=== PATIENT | male | born 1970 | race Caucasian/White ===

== ENCOUNTER 2016-12-31 03:04 | Emergency (ER) | payer OTHER ==
[~2016-12-31] VITALS: Ht 182.9 cm; Wt 72.6 kg
[~2016-12-31 03:04] MED LIST: MOTRIN 800MG T800 MG PO; PERCOCET 5-3251 EACH PO; TYLENOL500 MG PO
--- NOTE | 2016-12-31 03:10 | ED UPPER/LOWER EXTREMITY COMPL ---
History of Present Illness General Chief Complaint: General Adult Stated Complaint: HIVES ON LEFT HAND/MED REFILL Source: patient Exam Limitations: no limitations Vital Signs & Intake/Output Vital Signs & Intake/Output Vital Signs Date Time Temp Pulse Resp B/P Pulse O2 O2 Flow FiO2 Ox Delivery Rate 12/31 0311 97.3 78 18 110/68 96 Room Air Allergies Coded Allergies: NO KNOWN ALLERGIES (04/28/15) Reconcile Medications Oxycodone HCl/Acetaminophen (Percocet 5-325 MG Tablet) 1 EACH TABLET 1 TAB PO Q8 PRN pain Prednisone 10 MG TABLET 5 TAB PO QDAY HIVES Triage Nurses Notes Reviewed? yes Onset: Gradual Duration: day(s): Timing: recent history Severity: moderate Pain/Injury Location: Left: Hand. Method of Injury: "I'VE BEEN GETTING HIVES SINCE i'VE BEEN 12 YEARS OLD." Modifying Factors: Improves With: other ("GETS BETTER WITH PREDNISONE"). Associated Symptoms: HIVES ON LEFT HAND. HPI: 46-year-old gentleman history of hives since he was 12 years old presents with hives of his left hand for the past 4 days. He states, "I need some prednisone. That's the only thing that helps. Benadryl doesn't make a difference." He notes no pain fever or chills tenderness in his left hand he does not note any trauma. He is otherwise well and has no other concerns. Past History Travel History Traveled to [place] past 21 day No Medical History Any Pertinent Medical History? 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 No Review of Systems Review of Systems Constitutional: Reports: no symptoms. EENTM: Reports: no symptoms. Respiratory: Reports: no symptoms. Cardiovascular: Reports: no symptoms. Gastrointestinal/Abdominal: Reports: no symptoms. Genitourinary: Reports: no symptoms. Musculoskeletal: Reports: no symptoms. Skin: Reports: no symptoms. Neurological/Psychological: Reports: no symptoms. Hematologic/Endocrine: Reports: no symptoms. Immunological: Reports: no symptoms. All Other Systems: Reviewed and Negative Physical Exam Physical Exam General Appearance: well developed/nourished, mild distress Head: atraumatic Eyes: Bilateral: normal appearance. Ears, Nose, Throat: normal pharynx, normal ENT inspection, hearing grossly normal Neck: normal inspection, supple Cardiovascular/Respiratory: regular rate/rhythm Back: normal inspection Hand Left: URTICARIA AND LEFT HAND 4 X 6 CM. nO TENDERNESS. nO LYMPHANGITIC STREAKING. Skin: intact, normal color, warm/dry Lymphatic: no anterior cervical ramandeep Progress Differential Diagnosis: URTICARIA VERSUS OTHER Plan of Care: Patient given that his own and a prescription for 5 days. I encouraged close follow-up with his PMD. Departure Departure Disposition: HOME OR SELF CARE Condition: Stable Clinical Impression Primary Impression: Urticaria Referrals: DERIC LOZANO MD (PCP/Family) Departure Forms: Customer Survey General Discharge Information Prescriptions: Current Visit Scripts Prednisone 5 TAB PO QDAY #50 TAB
[2016-12-31 03:11] VITALS: BP 110/68
[2016-12-31] MEDS ORDERED: PREDNISONE10 M2 PO (03:11)
== END 2016-12-31 03:23 ==
LOC: ERH 03:04
DX: L50.9 Urticaria, unspecified (principal)

== ENCOUNTER 2017-01-22 01:25 | Emergency (ER) | payer OTHER ==
[~2017-01-22 01:25] MED LIST changes: +PREDNISONE10 M2 PO
[2017-01-22 01:36] VITALS: BP 106/72
[2017-01-22] MEDS ORDERED: DELTASONE20 MG PO (03:09)
--- NOTE | 2017-01-22 03:09 | ED SKIN/ALLERGY COMPLAINT ---
History of Present Illness General Chief Complaint: Skin Rash/ Abcess Stated Complaint: HIVES Source: patient, old records Exam Limitations: no limitations Vital Signs & Intake/Output Vital Signs & Intake/Output Vital Signs Date Time Temp Pulse Resp B/P Pulse O2 O2 Flow FiO2 Ox Delivery Rate 01/22 0141 98 Room Air 01/22 0136 97.6 72 18 106/72 98 Room Air Allergies Coded Allergies: NO KNOWN ALLERGIES (04/28/15) Reconcile Medications Oxycodone HCl/Acetaminophen (Percocet 5-325 MG Tablet) 1 EACH TABLET 1 TAB PO Q8 PRN pain Prednisone 10 MG TABLET 5 TAB PO QDAY HIVES Triage Note: PT STATES HE HAS HIVES ON ANKLES, HAS BEEN GETTING THEM SINCE HE WAS 13 JUST NEEDS A RX FOR PREDNISONE Triage Nurses Notes Reviewed? yes HPI: Patient presents for evaluation of hives of the left ankle that began last week. He was evaluated in the emergency department and given a prescription for prednisone but he was unable to fill it. He states he has had intermittent episodes of left ankle hives since he was a child. The hives have been constant since onset and described as moderate to severe in intensity. Nothing seems to make the hives improved. Of note the patient states that he removed a tick from the left thigh 3 days ago. He denies fever or cold symptoms. Denies trauma to the area. Past History Travel History Traveled to [place] past 21 day No Medical History Any Pertinent Medical History? see below for history Neurological: NONE EENT: NONE Cardiovascular: NONE Respiratory: NONE Gastrointestinal: NONE Hepatic: NONE Renal: NONE Musculoskeletal: NONE Psychiatric: NONE Endocrine: NONE Blood Disorders: NONE Cancer(s): NONE Surgical History Surgical History: bilateral hip replacement, right 2000, left 2003 recurrent hip dislocation Psychosocial History What is your primary language Rwandan Tobacco Use: Current Daily Use Daily Tobacco Use Amount/Type: => 5 Cigarettes daily Family History Hx Contributory? No Review of Systems Review of Systems Constitutional: Reports: no symptoms. EENTM: Reports: no symptoms. Respiratory: Reports: no symptoms. Cardiovascular: Reports: no symptoms. GI: Reports: no symptoms. Genitourinary: Reports: no symptoms. Musculoskeletal: Reports: no symptoms. Skin: Reports: see HPI. Neurological/Psychological: Reports: no symptoms. Hematologic/Endocrine: Reports: no symptoms. Immunologic/Allergic: Reports: no symptoms. All Other Systems: Reviewed and Negative Physical Exam Physical Exam General Appearance: SEE BELOW Comments: Gen.: Well-nourished, well-developed, no acute respiratory distress. Head: Normocephalic, atraumatic. Eyes: Normal inspection bilaterally Ears: Normal inspection bilaterally Nose: Normal inspection Throat/mouth : Moist mucosa Neck: Supple, full range of motion, no goiter Heart: Regular rate and rhythm Lungs: Quiet respirations Back: Normal range of motion Extremities: Decreased range of motion of the left ankle secondary to patchy erythema and soft tissue swelling. No apparent target lesions. No ecchymoses or bulla formation. Area of tick bite inspected with no signs of infection. Neurologic: Cranial nerves grossly intact, speech is clear Skin: warm and dry Psychiatric: Calm, cooperative, no apparent delusions or hallucinations Progress Differential Diagnosis: abscess/cellulitis, allergic reaction, contact dermatitis, lyme disease, urticaria Plan of Care: Current Medications Sig/Uzair Start time Last Medication Dose Stop Time Status Admin Prednisone 60 MG ONCE ONE 01/22 315 UNVr 01/22 316 Comments: Patient declined antibiotics because he states it never helps his ankle. He likewise denied the possibility of Lyme disease and declined specific treatment for this as well. Departure Departure Disposition: HOME OR SELF CARE Condition: Stable Clinical Impression Primary Impression: Leg erythema Referrals: DERIC LOZANO MD (PCP/Family) Additional Instructions: Prednisone as prescribed. Cool compresses to the left ankle over the next 48 hours. Follow up with your primary care doctor if not improved within 48-72 hours. Return if any concerns or sudden worsening. Departure Forms: Customer Survey General Discharge Information Prescriptions: Current Visit Scripts Prednisone (Deltasone) 3 TAB PO DAILY #15 TAB
== END 2017-01-22 03:15 ==
LOC: ERH 01:25
DX: L53.9 Erythematous condition, unspecified (principal)

== ENCOUNTER 2017-03-18 00:08 | Emergency (ER) | payer OTHER ==
[~2017-03-18 00:08] MED LIST changes: +DELTASONE20 MG PO
--- NOTE | 2017-03-18 00:53 | ED GENERAL ADULT ---
History of Present Illness General Chief Complaint: ETOH/Drug Related Complaint Stated Complaint: REQ OPIOID Source: patient Exam Limitations: no limitations Vital Signs & Intake/Output Vital Signs & Intake/Output Vital Signs Date Time Temp Pulse Resp B/P B/P Pulse O2 O2 Flow FiO2 Mean Ox Delivery Rate 03/18 0130 76 22 104/72 03/18 0101 76 22 104/72 98 Allergies Coded Allergies: NO KNOWN ALLERGIES (04/28/15) Reconcile Medications Clonidine HCl 0.1 MG TABLET 1 TAB PO TID WITHDRAWL Clonidine HCl 0.1 MG TABLET 1 TAB PO TID WITHDRAWL Ondansetron HCl (Zofran) 4 MG TABLET 1 TAB PO Q6-8P PRN NAUSEA Ondansetron HCl (Zofran) 4 MG TABLET 1 TAB PO Q6-8P PRN NAUSEA Oxycodone HCl/Acetaminophen (Percocet 5-325 MG Tablet) 1 EACH TABLET 1 TAB PO Q8 PRN pain Prednisone (Deltasone) 20 MG TABLET 3 TAB PO DAILY HIVES Prednisone 10 MG TABLET 5 TAB PO QDAY HIVES Triage Nurses Notes Reviewed? yes Onset: Abrupt Duration: day(s): Timing: recent history HPI: 03/18/17 1 AM Is a 47-year-old male presents to the emergency department requesting assistance with opiate detox. The patient states he's been injecting IV drugs for the past several months. The onset of the symptoms of been abrupt, the duration has been for months, the severity is significant as his symptoms required him to come to the emergency department for care. He denies depression, suicidal ideation, alcohol dependency or other complaints Past History Travel History Traveled to [place] past 21 day No Medical History Any Pertinent Medical History? see below for history Neurological: NONE EENT: NONE Cardiovascular: NONE Respiratory: NONE Gastrointestinal: NONE Hepatic: NONE Renal: NONE Musculoskeletal: NONE Psychiatric: NONE Endocrine: NONE Blood Disorders: NONE Cancer(s): NONE Surgical History Surgical History: bilateral hip replacement, right 2000, left 2003 recurrent hip dislocation Psychosocial History What is your primary language Latvian Family History Hx Contributory? No Review of Systems Review of Systems Constitutional: Denies: fever. EENTM: Reports: no symptoms. Respiratory: Reports: no symptoms. Cardiovascular: Reports: no symptoms. GI: Reports: no symptoms. Genitourinary: Reports: no symptoms. Musculoskeletal: Reports: no symptoms. Skin: Reports: no symptoms. Neurological/Psychological: Reports: no symptoms. Hematologic/Endocrine: Reports: no symptoms. Physical Exam Physical Exam General Appearance: well developed/nourished, alert, awake, anxious, mild distress Head: atraumatic, normal appearance Eyes: Bilateral: normal appearance, PERRL, EOMI. Ears, Nose, Throat: normal pharynx, normal ENT inspection Neck: normal inspection, supple Respiratory: normal breath sounds, chest non-tender, no respiratory distress Cardiovascular: regular rate/rhythm, no murmurs Peripheral Pulses: 4+ radial (R), 4+ radial (L) Gastrointestinal: soft, non-tender Back: normal range of motion Extremities: no edema Neurologic/Psych: no motor/sensory deficits, awake, alert, oriented x 3 Skin: intact, normal color, warm/dry Core Measures ACS in differential dx? No CVA/TIA Diagnosis: No Severe Sepsis Present: No Septic Shock Present: No Progress Differential Diagnoses I considered the following diagnoses in my evaluation of the patient: [Opiate dependency, depression, polysubstance abuse] Plan of Care: Clonidine and Zofran has instructed. Outpatient detox referrals given. The patient consented to have a [employer] telemarketing representative contact him first assistance. Initial ED EKG: none Departure Departure Disposition: HOME OR SELF CARE Condition: Stable Clinical Impression Primary Impression: Opiate dependence Referrals: DERIC LOZANO MD (PCP/Family) Departure Forms: Customer Survey General Discharge Information Prescriptions: Current Visit Scripts Clonidine HCl 1 TAB PO TID #9 TAB Ondansetron HCl (Zofran) 1 TAB PO Q6-8P PRN NAUSEA #5 TAB Clonidine HCl 1 TAB PO TID #9 TAB Ondansetron HCl (Zofran) 1 TAB PO Q6-8P PRN NAUSEA #5 TAB Critical Care Note Critical Care Note Critical Care Time: non-applicable
[2017-03-18] MEDS ORDERED: CLONIDINE HCL0.1 MG PO ×2 (01:05→01:10)
[2017-03-18] MEDS ORDERED: ZOFRAN4 M2 PO ×2 (01:05→01:10)
[2017-03-18 01:30] VITALS: BP 104/72
== END 2017-03-18 01:32 ==
LOC: ERH 00:08
DX: F11.20 Opioid dependence, uncomplicated (principal)
CPT/HCPCS: J3101

== ENCOUNTER 2018-05-09 20:17 | Emergency (ER) | payer OTHER ==
[~2018-05-09] VITALS: Ht 182.9 cm; Wt 90.7 kg
[~2018-05-09 20:17] MED LIST changes: +CLONIDINE HCL0.1 MG PO; +PREDNISONE50 M1 PO; +ZOFRAN4 M2 PO
--- NOTE | 2018-05-09 21:33 | ED SKIN/ALLERGY COMPLAINT ---
History of Present Illness General Chief Complaint: Allergy Symptoms Stated Complaint: ALLERGIC REACTION Source: patient, old records Exam Limitations: no limitations Vital Signs & Intake/Output Vital Signs & Intake/Output Vital Signs Date Time Temp Pulse Resp B/P B/P Pulse O2 O2 Flow FiO2 Mean Ox Delivery Rate 05/09 2036 98.3 74 18 115/80 97 Room Air Allergies Coded Allergies: NO KNOWN ALLERGIES (04/28/15) Reconcile Medications Clonidine HCl 0.1 MG TABLET 1 TAB PO TID WITHDRAWL Clonidine HCl 0.1 MG TABLET 1 TAB PO TID WITHDRAWL Diphenhydramine HCl (Benadryl Allergy) 25 MG TABLET 1-2 TAB PO Q6P PRN urticaria Famotidine (Pepcid) 20 MG TABLET 1 TAB PO BID allergy Ondansetron HCl (Zofran) 4 MG TABLET 1 TAB PO Q6-8P PRN NAUSEA Ondansetron HCl (Zofran) 4 MG TABLET 1 TAB PO Q6-8P PRN NAUSEA Oxycodone HCl/Acetaminophen (Percocet 5-325 MG Tablet) 1 EACH TABLET 1 TAB PO Q8 PRN pain Prednisone (Deltasone) 20 MG TABLET 3 TAB PO DAILY HIVES Prednisone 50 MG TABLET 1 TAB PO DAILY HIVES Prednisone 10 MG TABLET 5 TAB PO QDAY HIVES Prednisone 20 MG TABLET 1 TAB PO BID angioedema Triage Note: RECEIVED 48 YO MALE BOUGHT DIRECTLY TO ROOM # 10 FOR ALLERGIC REACTION TO UNKNOWN SUBSTANCE. PT REPORTS MULTIPLE HIVES AND LOWER LIP SWELLING, STARTED APPROX 1830 TODAY. NO WHEEZING OR STRIDOR NOTED. PT REPORTS HE TOOK 20 MG PREDNISONE PO WITHOUT EFFECT. PT REPORTS MULTIPLE EPISODES OF ALLERGIC REACTIONS IN THE PAST TO UNKNOWN SUBSTANCE. Triage Nurses Notes Reviewed? yes Onset: Just prior to arrival Duration: hour(s):, constant, continues in ED Timing: recent history Severity: moderate Location: face, generalized Possible Factors: exposure to allergen No Modifying Factors: none Associated Symptoms: change in skin texture, rash, swelling/mass/lumps HPI: Prior to admission patient developed recurrent lower lip swelling generalized itchy rash. Denies fever chills nausea vomiting diarrhea abdominal pain chest pain shortness breath headache dysuria bleeding no soap shampoo detergent new medications. Past History Travel History Traveled to [place] past 21 day No Medical History Any Pertinent Medical History? none Neurological: NONE EENT: NONE Cardiovascular: NONE Respiratory: NONE Gastrointestinal: NONE Hepatic: NONE Renal: NONE Musculoskeletal: NONE Psychiatric: NONE Endocrine: NONE Blood Disorders: NONE Cancer(s): NONE Surgical History Surgical History: bilateral hip replacement, right 2000, left 2003 recurrent hip dislocation Psychosocial History What is your primary language Lao Tobacco Use: Current Daily Use Daily Tobacco Use Amount/Type: => 5 Cigarettes daily Family History Hx Contributory? No Review of Systems Review of Systems Constitutional: Reports: no symptoms. EENTM: Reports: see HPI. Respiratory: Reports: no symptoms. Cardiovascular: Reports: no symptoms. GI: Reports: no symptoms. Genitourinary: Reports: no symptoms. Musculoskeletal: Reports: no symptoms. Skin: Reports: see HPI, rash. Neurological/Psychological: Reports: no symptoms. Hematologic/Endocrine: Reports: no symptoms. Immunologic/Allergic: Reports: no symptoms. All Other Systems: Reviewed and Negative Physical Exam Physical Exam General Appearance: well developed/nourished, alert, awake, anxious, mild distress Head: atraumatic Eyes: Bilateral: normal appearance, PERRL, EOMI. Ears, Nose, Throat: normal pharynx, normal ENT inspection, hearing grossly normal, lower lip swelling Neck: normal inspection, supple Respiratory: normal breath sounds, chest non-tender, no respiratory distress, quiet respiration, lungs clear Cardiovascular: regular rate/rhythm, normal peripheral pulses, norml femoral pulses equa Peripheral Pulses: 4+ carotid (R), 4+ carotid (L) Gastrointestinal: normal bowel sounds, soft, non-tender, no organomegaly Back: normal inspection, normal range of motion, no vertebral tenderness Extremities: normal inspection, normal capillary refill, normal range of motion, no edema Neurologic/Psych: no motor/sensory deficits, awake, alert, oriented x 3, normal gait, normal mood/affect, rate setter II-XII nml as tested Reflexes: 2+: bicep (R), bicep (L). Skin: intact, normal color, warm/dry Skin Problem Location: generalized Skin Problem Character: rash, urticarial Lymphatic: no anterior cervical ramandeep Progress Differential Diagnosis: abscess/cellulitis, allergic reaction, angioedema, contact dermatitis Plan of Care: Solu-Medrol Benadryl Pepcid observation Departure Departure Time of Disposition: 2306 Disposition: HOME OR SELF CARE Condition: Stable Clinical Impression Primary Impression: Angioedema Secondary Impressions: Urticaria Referrals: Patient Has No Primary Care Dr (PCP/Family) Departure Forms: Customer Survey General Discharge Information RELEASE- WORK Prescriptions: Current Visit Scripts Prednisone 1 TAB PO BID #10 TAB Diphenhydramine HCl (Benadryl Allergy) 1-2 TAB PO Q6P PRN urticaria #30 TAB Ref 1 Famotidine (Pepcid) 1 TAB PO BID #10 TAB Critical Care Note Critical Care Note Critical Care Time: 30-74 min (60)
[2018-05-09] MEDS ORDERED: PREDNISONE20 M1 PO (22:22)
[2018-05-09] MEDS ORDERED: BENADRYL ALLERG25 M2 PO (22:22)
[2018-05-09] MEDS ORDERED: PEPCID20 M1 PO (22:22)
[2018-05-09 23:35] VITALS: BP 109/67
== END 2018-05-09 23:44 ==
LOC: ERH 20:17
DX: T78.3XXA Angioneurotic edema, initial encounter (principal); L50.9 Urticaria, unspecified
CPT/HCPCS: 96374; 96375; J1200; J2930

== ENCOUNTER 2018-08-24 06:30 | Emergency (ER) | payer OTHER ==
[~2018-08-24] VITALS: Ht 182.9 cm; Wt 83.9 kg
[~2018-08-24 06:30] MED LIST changes: +BENADRYL ALLERG25 M2 PO; +PEPCID20 M1 PO; +PREDNISONE20 M1 PO
--- NOTE | 2018-08-24 07:29 | ED GENERAL ADULT ---
See Addendum History of Present Illness General Chief Complaint: Skin Rash/ Abcess Stated Complaint: HIVES ON BOTH LEGS PER PT Source: patient Exam Limitations: no limitations Vital Signs & Intake/Output Vital Signs & Intake/Output Vital Signs Date Time Temp Pulse Resp B/P B/P Pulse O2 O2 Flow FiO2 Mean Ox Delivery Rate 08/24 0841 94/55 08/24 0756 Room Air Room Air 08/24 0651 97.8 69 18 95/52 96 Room Air Allergies Coded Allergies: NO KNOWN ALLERGIES (04/28/15) Reconcile Medications No Known Home Medications Triage Note: PT FROM HOME C/O OF BILATERAL ANKLE SWELLING "HIVES" PER PT. PT STATES IT BEGAN 2 DAYS AGO, PT DOES NOT SEE MD. PT STATES HX OF HAPPENING IN THE PAST "YEAH THEY DONT KNOW WHY". PT A&0X3, LYING ON STRETCHER DRINKING COFFEE. Triage Nurses Notes Reviewed? yes Onset: Abrupt Duration: hour(s): Timing: single episode today HPI: 48 year old male presents to the emergency department with bilateral hives to his feet for the past 2 days. He says that this has been happening for years and usually takes OTC medication for this. He also admits to cocaine use in the past week. No chest pain. He is intermittently had urticaria since he was 12. Past History Travel History Traveled to [place] past 21 day No Medical History Any Pertinent Medical History? see below for history Neurological: NONE EENT: NONE Cardiovascular: NONE Respiratory: NONE Gastrointestinal: NONE Hepatic: NONE Renal: NONE Musculoskeletal: NONE Psychiatric: NONE Endocrine: NONE Blood Disorders: NONE Cancer(s): NONE Other Medical Hx: Urticaria Surgical History Surgical History: bilateral hip replacement, right 2000, left 2003 recurrent hip dislocation Psychosocial History What is your primary language Gabonese Tobacco Use: Current Daily Use Daily Tobacco Use Amount/Type: => 5 Cigarettes daily Family History Hx Contributory? No Review of Systems Review of Systems Constitutional: Reports: see HPI. Denies: fever. EENTM: Reports: no symptoms. Denies: blurred vision, double vision, visual changes. Respiratory: Reports: no symptoms. Denies: cough, short of breath. Cardiovascular: Reports: no symptoms. Denies: chest pain, edema. GI: Reports: no symptoms. Genitourinary: Reports: no symptoms. Musculoskeletal: Reports: no symptoms. Skin: Reports: see HPI, rash (hives). Neurological/Psychological: Reports: no symptoms. Hematologic/Endocrine: Reports: no symptoms. Immunologic/Allergic: Reports: no symptoms. Physical Exam Physical Exam General Appearance: well developed/nourished, alert, awake, anxious Head: atraumatic, normal appearance Eyes: Bilateral: normal appearance, PERRL, EOMI. Ears, Nose, Throat: normal ENT inspection Neck: normal inspection Respiratory: normal breath sounds, no respiratory distress Cardiovascular: regular rate/rhythm Peripheral Pulses: 4+ radial (R), 4+ radial (L) Gastrointestinal: soft, non-tender Back: normal inspection Extremities: Hives to bilateral feet. Neurologic/Psych: no motor/sensory deficits, awake, alert, oriented x 3 Skin: intact, normal color, warm/dry Core Measures ACS in differential dx? No CVA/TIA Diagnosis: No Sepsis Present: No Sepsis Focused Exam Completed? No Progress Differential Diagnoses I considered the following diagnoses in my evaluation of the patient: [ Hereditary angioedema, carcinoid syndrome] Plan of Care: Orders Procedure Date/time Status EKG 08/24 745 Active Initial ED EKG: NSR Departure Departure Disposition: HOME OR SELF CARE Condition: Stable Clinical Impression Primary Impression: Acute urticaria Referrals: Patient Has No Primary Care Dr (PCP/Family) Departure Forms: Customer Survey General Discharge Information Prescriptions: Current Visit Scripts No Known Home Medications Comments 08/24/18 The patient was reevaluated. His symptoms improved with by mouth prednisone and 50 mg of Atarax. He has a history of chronic intermittent urticaria and his blood pressure is always low according to the patient. He has no chest pain or shortness of breath. EKG reveals sinus rhythm at a rate of 66 with no ischemic changes. We'll discharge on prednisone and Atarax. He was instructed to please follow up with a [facility] primary care physician. He says he's been having this problem since the age of 12 and currently does not have a primary care doctor. I will actually have the [facility] to set up an appointment. Critical Care Note Critical Care Note Critical Care Time: non-applicable ED Attending Observation Initial Observation Note: I have seen and personally examined SHARITA BORGES on 08/24/18 at 0803. I agree with the current emergency department documentation. The disposition (admission or discharge) is uncertain at this time, he needs a period of observation for the following reason(s): The ED Nurse caring for this patient has been personally informed as to what the patient is being observed for.
[2018-08-24 08:41] VITALS: BP 94/55
[2018-08-24] MEDS ORDERED: DELTASONE20 MG PO (08:55)
[2018-08-24] MEDS ORDERED: VISTARIL25 M1 PO (08:55)
== END 2018-08-24 09:00 ==
LOC: ERH 06:30
DX: L50.9 Urticaria, unspecified (principal); F14.10 Cocaine abuse, uncomplicated; F17.210 Nicotine dependence, cigarettes, uncomplicated
CPT/HCPCS: 93005; 93010